=== PATIENT | male | born 1985 | race Caucasian/White ===

== ENCOUNTER 2017-10-18 11:56 | Emergency (ER) | payer BC ==
[2017-10-18 13:21] LABS: Bilirubin Negative (Negative); Blood, Urine Negative (Negative); Clarity CLEAR (Clear); Glucose, Urine (Dipstick) Negative (Negative); Leukocyte Negative (Negative); Nitrite Negative (Negative); Protein, Urine (Dipstick) Negative (Neg-Trace); Specific Gravity, Urine 1.003 (1.002-1.036); Urobilinogen 0.2 mg/dL (0.2-1.0); pH, Urine 7.5 (5.0-9.0)
[2017-10-18 13:33] LABS: Amphetamine Not Detected (NotDetected); Barbiturates Screen Not Detected (NotDetected); Benzodiazepine Screen Not Detected (NotDetected); Cocaine Metabolite Screen Not Detected (NotDetected); Medtox Control Line Valid? VALID (VALID); Medtox Reader # READER 1; Methadone Not Detected (NotDetected); Methamphetamine Not Detected (NotDetected); Opiate Screen Detected (NotDetected); Oxycodone Screen Not Detected (NotDetected); Phencyclidine (PCP) Not Detected (NotDetected); THC/Cannabinoid Screen Detected (NotDetected); Tricyclic Screen Not Detected (NotDetected)
[2017-10-18 13:34] LABS: #Basophils 0.1 thou/uL (0.0-0.2); #Eosinphils 0.1 thou/uL (0.0-0.7); #Lymphocytes 2.1 thou/uL (1.20-3.40); #Monocytes 0.9 thou/uL (0.11-0.59); #Neutrophils 13.1 thou/uL (1.40-6.50); %Basophils 0.6 % (0.0-1.0); %Eosinophils 0.4 % (0.0-10.0); %Lymphocytes 12.8 % (21.0-51.0); %Monocytes 5.4 % (0.0-10.0); %Neutrophils 80.8 % (42.0-75.0); Hemoglobin 13.7 g/dL (14.0-18.0); Mean Corpuscular HGB CONC 33.2 g/dL (32.0-36.0); Mean Corpuscular Volume 96.2 fl (80.0-94.0); Mean Platelet Volume 6.5 fL (7.4-10.4); Platelet Count 505 thou/uL (130-400); RBC Distribution Width 11.3 % (11.5-14.5); Red Blood Cell (RBC) Count 4.29 mill/uL (4.70-6.10); White Blood Cell (WBC) Count 16.2 thou/uL (4.8-10.8)
[2017-10-18 13:50] LABS: ALT (SGPT) 15 U/L (8-55); AST (SGOT) 15 U/L (5-34); Albumin 4.2 g/dL (3.5-5.0); Alkaline Phosphatase 73 U/L (40-150); Anion Gap 12 mmol/L (10-20); BUN (Urea Nitrogen) 10 mg/dL (8.9-20.6); Bilirubin, Total 0.3 mg/dL (0.2-1.2); CK (CPK) 159 U/L (30-200); Calc. Creatinine Clearance 0 mL/min (70-130); Calcium 9.3 mg/dL (7.8-10.44); Carbon Dioxide 26 mmol/L (22-29); Chloride 103 mmol/L (98-107); Estimated GFR-MDRD Greater than 90; Globulin 3.3 g/dL (2.4-3.5); Glucose 125 mg/dL (70-105); Potassium 3.4 mmol/L (3.5-5.1); Protein, Total 7.5 g/dL (6.0-8.3); Sodium 138 mmol/L (136-145)
[2017-10-18 13:54] LABS: CKMB 3.1 ng/mL (0-6.6); Troponin I Less than 0.010 ng/mL (< 0.028)
== END 2017-10-18 14:37 | disposition home or self-care (01) ==
LOC: ERS 11:56
DX: F43.0 Acute stress reaction (principal)
CPT/HCPCS: 36415; 36416; 80053; 80306; 81003; 82553; 84484; 85025; 93005; 96360

== ENCOUNTER 2017-12-30 03:33 | Emergency (ER) | payer BC ==
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
== END 2017-12-30 04:29 | disposition home or self-care (01) ==
LOC: ERS 03:33
DX: Z04.3 Encounter for examination and observation following other accident (principal); R51 Headache; H53.8 Other visual disturbances; M54.2 Cervicalgia; M54.5 Low back pain; W22.8XXA Striking against or struck by other objects, initial encounter
CPT/HCPCS: 70450

== ENCOUNTER 2018-07-12 23:45 | Emergency (ER) | payer BC, SELFPAY | END 2018-07-13 01:07 | disposition home or self-care (01) | LOC: ERS 23:45 | DX: L08.9 Local infection of the skin and subcutaneous tissue, unspecified (principal) | CPT/HCPCS: 99283 ==

== ENCOUNTER 2018-11-20 00:38 | Emergency (ER) | payer SELFPAY ==
[2018-11-20] MEDS ORDERED: Lidocaine 1% w/Epinephrine 1:100K 20 ML VIAL ONE (02:34)
[2018-11-20] MEDS ORDERED: Bacitracin Zinc 1 Packet ONE (03:04)
--- NOTE | 2018-11-20 07:45 | CT ---
CT BRAIN WITHOUT CONTRAST: Date: 11/20/18 INDICATION: 33-year-old male status post fall. COMPARISON: Prior exam dated 12/30/17. FINDINGS: No acute infarct, hemorrhage, or hydrocephalus is present. The prominent posterior CSF space involvin g the posterior fossa may reflect a prominent stephan cisterna magna versus a small arachnoid cyst. This is stable. Septum pellucidum and third ventricle are midline. No acute infarct, hemorrhage, or hydro cephalus present. There is mild mucosal thickening within the ethmoid air cells. No air fluid level i s evident. The skull is intact. IMPRESSION: 1. No acute intracranial abnormality. 2. Mild paranasal sinus disease. POS: BH
== END 2018-11-20 03:07 | disposition home or self-care (01) ==
LOC: ERS 00:38
DX: S06.0X9A Concussion with loss of consciousness of unspecified duration, initial encounter (principal); S01.81XA Laceration without foreign body of other part of head, initial encounter; W18.09XA Striking against other object with subsequent fall, initial encounter
CPT/HCPCS: 12013; 70450; J2001